=== PATIENT | male | born 1985 | race Caucasian/White ===

== ENCOUNTER → 2016-12-11 | Outpatient (CLI) | payer BC ==
[2016-12-11 17:20] LABS: DAYS OF ABSTINENCE 2; METHOD OF COLLECTION MASTERBATION; SEMEN COLOR GRAY OR GRAY-WHITE (GRY/GRYWHTE); SEMEN TIME OF COLLECTION 1430; SEMEN VOLUME 1.3 ML (>1.5); TYPE OF SPECIMEN CONTAINER STERILE CUP
[2016-12-11 17:21] LABS: SPERM VIABILITY STAIN NOT PERFORMED % (>58%)
== END | disposition home or self-care (01) ==
LOC: C.LAB 14:57
PROVIDERS: ATTEND Urology
DX: N46.9 Male infertility, unspecified (principal)

== ENCOUNTER → 2016-12-18 | Outpatient (CLI) | payer BC ==
[2016-12-21 14:16] LABS: METHOD OF COLLECTION MASTURBATION; SEMEN TIME OF COLLECTION 1500; TYPE OF SPECIMEN CONTAINER STERILE CUP
[2016-12-21 14:17] LABS: DAYS OF ABSTINENCE 5; SEMEN COLOR GRAY OR GRAY-WHITE (GRY/GRYWHTE); SPERM VIABILITY STAIN NOT INDICATED % (>58%)
== END | disposition home or self-care (01) ==
LOC: C.LAB 15:00
PROVIDERS: ATTEND Family Medicine
DX: N46.9 Male infertility, unspecified (principal)

== ENCOUNTER 2020-01-17 06:03 | Observation (INO) ==
[2020-01-17] MEDS ORDERED: SODIUM CHLORIDE 0.9% 1000ML 1,000 ML IV ONE (06:10)
--- NOTE | 2020-01-17 06:13 | Emergency Department Note ---
Impression & Plan Overdose of trazodone, Anticholinergic syndrome ED Provider Note Name: ROLANDO GILL Age: 34 Sex: M Arrives Via: Ambulance Informant: EMS ED Provider: Johnson Morel MD Chief Complaint: Overdose Impression: Overdose of Trazodone Anticholinergic Syndrome Medical Decision Makin yr old male without known medical history arrives obtunded though anticholin ergic following large Trazadone overdose roughly 1 to 2 hours prior to arrival. Apparently overdosed after getting in to argument with girlfriend. Reportedly this was a suicide attempt but patient unable to give history due to AMS. Tachy, dry and tremulous as well as having erection on exam. Consistent with anticholinergic syndrome. EKG without QTC nor QRS prolongation, CXR clear and initial vitals other than mild tachy normal with good sats on RA. Reviewed with Poison Control who agree with plan. IV fluids and IV ativan given increasing anticholinergic findings and wish to block worsening or seizure. No seizing here fortunately. No known other medications and no evidence of trauma. Vastly improving with fluids and initial Ativan IV. Repeat EKG stable. Prior Medical Record and Triage/Nursing Notes reviewed by Me Additional history obtained from EMS Differentials:Overdose, toxicologic, infection, hypoglycemia, electrolyte abnormalities, cardiac sources, intracerebral event, neurologic, trauma, as well as other pathologies. Vital Signs: reviewed and remarkable for tachy Interventions: Saline lock, NSS Bolus, Ativan 2mg IV Labs:Reviewed and remarkable for no acute findings Imaging:X ray results are stated below per my interpretation: Chest: 1 view: No infiltrate, no effusion, normal cardiac border. EKG #1:Per My Interpretation: Indication Overdose: NSR 81 bpm, qtc 469. No Ectopy. No Ischemia. No previous for comparison EKG #2. Per My Interpretation: Indication Overdose: NSR 91 bpm, qtc 460. No Ectopy. No Ischemia. Compared to EKG ealier, no significant changes. Cardiac/Tele Monitoring: Cardiac Monitoring: An Order was placed for continuous cardiac monitoring. The monitor shows a rate of 110 with a sinus tach rhythm. Consults:Dr Juwan ORELLANA Hospitalist Plan: Disposition:Hospitalization. Condition: Fair Blood pressure:Normal.No Referral necessary Prescriptions:none PDMP: n/a History of Present Illness:34 / M arrives for evaluation of overdose. Patient with unknown history. Arrives via EMS following medication overdose. Some time between 4am and 5am patient took roughly 10 tablets of 300mg Trazadone. Apparently he did this in response to girlfriend kicking him out of the house. These were the girlfriend's medications. No other known medications nor alcohol involved. Patient apparently rapidly became somnolent, may have had a seizure and EMS called. On their arrival patient somonlent with poor respiratory effort. Placed on NRB and vitals normal en route. Given Narcan 2mg IV without waking up. Given 500ml IV fluids prior to arrival. Further information unable to be obtained. ROS: Unable to obtain due to AMS Past Medical History:Unknown Past Surgical History:unknown Family History:Unknown Social History:Unknown Home Medications:Unknown Allergies:Unknown Vitals:Blood Pressure: 143/88, Pulse 101, RR 24, T 37.3C, O2 100% on RA Physical Exam: GENERAL: Patient is obtunded and though periodically spontaneously making tremulous movements appearing. EYES: No scleral icterus, unremarkable pupils. Wandering eyes with mildly discongugate gaze ENT: Mucous membranes dry, no nasal congestion. NECK: No masses appreciated, nomeningismus, trachea is midline. RESPIRATORY: No dyspnea. Clear to auscultation and equal bilaterally. No wheeze, no rhonchi. CARDIOVASCULAR: Mild Tachy.No murmurs, rubs, gallops appreciated. GASTROINTESTINAL: Abdomen soft, non-tender, no peritonitis.Bowel sounds pos itive.No masses appreciated. BACK: No midline tenderness, no CVA tenderness EXTREMITIES: Normal motion all extremities, no cyanosis, no edema. : erection NEUROLOGIC: Withdrawals slightly to painful stimuli, periodically mumbling, Obtunded/unresponsive, but periodically making spontaneous tremulous movements or trying to sit up SKIN: No rash, no jaundice, no diaphoresis. GCS: 7 ED Course: Times/Reassessments: Many bedside evaluations, seems improved with Ativan & fluids Critical Care: I have personally spent 45 minutes of critical care time in the direct management of this patient. Acute Trazadone overdose with anticholinergic syndrome. This was a life/limb threatening event. This 45 minutes is in excess of all separately billable procedures. Johnson Morel MD Past Med/Surg History Social History Smoking Status: Unknown if ever smoked Preferred Language: Dominican Feels Safe at Home: Yes Allergies Allergies Allergy/AdvReac Type Severity Reaction Status Date / Time amoxicillin Allergy Unknown unknown Verified 10/04/14 20:06 Home Meds Home Medications Medication Instructions Recorded Confirmed Unobtainable 01/17/20 01/17/20 Results & Data (ED) Vital Signs Vital Signs - 24 hr 01/17/20 06:14 01/17/20 06:44 01/17/20 07:00 Temperature 37.3 C Temperature Source Oral Pulse Rate 101 H 88 Pulse Rate [Apical] 81 Pulse Rate from SpO2 Sensor 86 Respiratory Rate 24 23 18 Respiratory Depth Normal Blood Pressure 143/88 H 112/47 L Blood Pressure [Right Arm] 121/49 L Blood Pressure Mean 106 72 Blood Pressure Mean [Right Arm] 73 Pulse Oximetry 100 97 98 Oxygen Delivery Method Room Air Room Air Room Air Sepsis Recent Fever Within 48 Hours No Sepsis New/Unexplained Change in Mental Status Yes Sepsis Action Taken by Nursing No Action Required 01/17/20 07:06 Temperature Temperature Source Pulse Rate Pulse Rate [Apical] Pulse Rate from SpO2 Sensor Respiratory Rate Respiratory Depth Blood Pressure Blood Pressure [Right Arm] Blood Pressure Mean Blood Pressure Mean [Right Arm] Pulse Oximetry 95 Oxygen Delivery Method Room Air Sepsis Recent Fever Within 48 Hours Sepsis New/Unexplained Change in Mental Status Sepsis Action Taken by Nursing Laboratory Data Result diagrams: 01/17/20 05:40 01/17/20 05:40 Lab Results 01/17/20 01/17/20 01/17/20 Range/Units 05:40 05:40 05:40 WBC 8.79 (4.8-10.8) K/uL RBC 5.02 (4.7-6.1) M/uL Hgb 14.5 (14.0-18.0) g/dL Hct 43.9 (42-52) % MCV 87.5 (80-100) fL MCH 28.9 (25-34) pg MCHC 33.0 (32-36) g/dL RDW Std Deviation 44.6 (36.4-46.3) fL RDW Coeff of Des 13.9 (11.5-14.5) % Plt Count 248 (130-400) K/uL MPV 9.6 (7.4-10.4) fL Immature Gran % (Auto) 0.1 % Neut % (Auto) 63.3 % Lymph % (Auto) 28.2 % [place] % (Auto) 6.8 % Eos % (Auto) 1.4 % Baso % (Auto) 0.2 % Neut # (Auto) 5.56 (1.4-6.5) K/uL Lymph # (Auto) 2.48 (1.2-3.4) K/uL [place] # (Auto) 0.60 H (0.11-0.59) K/uL Eos # (Auto) 0.12 (0-0.5) K/uL Baso # (Auto) 0.02 (0-0.2) K/uL Immature Gran # (Auto) 0.01 (0.00-0.02) K/uL Sodium 142 (136-145) mmol/L Potassium 3.4 L (3.5-5.1) mmol/L Chloride 110 H (98-107) mmol/L Carbon Dioxide 25 (21-32) mmol/L Anion Gap 7.0 (3-11) BUN 15 (7-18) mg/dl Creatinine 1.05 (0.6-1.4) mg/dl Est Cr Clr Drug Dosing 116.2 ml/min Est GFR ( Amer) 108.3 Est GFR (Non-Af Amer) 93.5 BUN/Creatinine Ratio 14.3 (10-20) Glucose 116 H (70-99) mg/dl Calcium 8.6 (8.5-10.1) mg/dl Total Bilirubin 0.5 (0.2-1) mg/dl AST 12 L (15-37) U/L ALT 35 (12-78) U/L Alkaline Phosphatase 69 (45-117) U/L Total Protein 8.1 (6.4-8.2) gm/dl Albumin 4.0 (3.4-5.0) gm/dl Globulin 4.1 H (2.5-4.0) gm/dl Albumin/Globulin Ratio 1.0 (0.9-2) TSH 1.030 (0.300-4.500) uIu/ml Urine Color Urine Appearance (Clear) Urine pH (4.5-7.5) Ur Specific [place] (1.000-1.030) Urine Protein (Negative) Urine Glucose (UA) (Negative) Urine Ketones (Negative) Urine Blood (Negative) Urine Nitrite (Negative) Urine Bilirubin (Negative) Urine Urobilinogen (Negative) Ur Leukocyte Esterase (Negative) Urine RBC (0-4) /hpf Urine WBC (0-5) /hpf Ur Epithelial Cells (0-5) /lpf Urine Bacteria (Negative) Hyaline Casts (0-5) /lpf Urine Mucus (None Prsent) Salicylates 3.1 (2.8-20) mg/dl Urine Opiates Screen (Neg) Ur Methadone, Qual (Neg) Acetaminophen < 2 L (10-30) ug/ml Urine Barbiturates (Neg) Ur Phencyclidine (PCP) (Neg) U Amphetamin/Meth Scrn (Neg) MDMA (Ecstasy) Screen (Neg) U Benzodiazepines Scrn (Neg) Ur Cocaine Metabolite (Neg) U Marijuana (THC) Screen (Neg) 01/17/20 01/17/20 Range/Units 06:18 06:18 WBC (4.8-10.8) K/uL RBC (4.7-6.1) M/uL Hgb (14.0-18.0) g/dL Hct (42-52) % MCV (80-100) fL MCH (25-34) pg MCHC (32-36) g/dL RDW Std Deviation (36.4-46.3) fL RDW Coeff of Des (11.5-14.5) % Plt Count (130-400) K/uL MPV (7.4-10.4) fL Immature Gran % (Auto) % Neut % (Auto) % Lymph % (Auto) % [place] % (Auto) % Eos % (Auto) % Baso % (Auto) % Neut # (Auto) (1.4-6.5) K/uL Lymph # (Auto) (1.2-3.4) K/uL [place] # (Auto) (0.11-0.59) K/uL Eos # (Auto) (0-0.5) K/uL Baso # (Auto) (0-0.2) K/uL Immature Gran # (Auto) (0.00-0.02) K/uL Sodium (136-145) mmol/L Potassium (3.5-5.1) mmol/L Chloride (98-107) mmol/L Carbon Dioxide (21-32) mmol/L Anion Gap (3-11) BUN (7-18) mg/dl Creatinine (0.6-1.4) mg/dl Est Cr Clr Drug Dosing ml/min Est GFR ( Amer) Est GFR (Non-Af Amer) BUN/Creatinine Ratio (10-20) Glucose (70-99) mg/dl Calcium (8.5-10.1) mg/dl Total Bilirubin (0.2-1) mg/dl AST (15-37) U/L ALT (12-78) U/L Alkaline Phosphatase (45-117) U/L Total Protein (6.4-8.2) gm/dl Albumin (3.4-5.0) gm/dl Globulin (2.5-4.0) gm/dl Albumin/Globulin Ratio (0.9-2) TSH (0.300-4.500) uIu/ml Urine Color Yellow Urine Appearance Cloudy A (Clear) Urine pH 5.0 (4.5-7.5) Ur Specific [place] >= 1.030 (1.000-1.030) Urine Protein Trace H (Negative) Urine Glucose (UA) Negative (Negative) Urine Ketones Negative (Negative) Urine Blood 2+ H (Negative) Urine Nitrite Negative (Negative) Urine Bilirubin Negative (Negative) Urine Urobilinogen Negative (Negative) Ur Leukocyte Esterase Negative (Negative) Urine RBC 10-30 H (0-4) /hpf Urine WBC >30 H (0-5) /hpf Ur Epithelial Cells 5-10 H (0-5) /lpf Urine Bacteria 1+ H (Negative) Hyaline Casts 10-30 H (0-5) /lpf Urine Mucus Present A (None Prsent) Salicylates (2.8-20) mg/dl Urine Opiates Screen Neg (Neg) Ur Methadone, Qual Neg (Neg) Acetaminophen (10-30) ug/ml Urine Barbiturates Neg (Neg) Ur Phencyclidine (PCP) Neg (Neg) U Amphetamin/Meth Scrn Pos H (Neg) MDMA (Ecstasy) Screen Pos H (Neg) U Benzodiazepines Scrn Neg (Neg) Ur Cocaine Metabolite Neg (Neg) U Marijuana (THC) Screen Pos H (Neg) Administered Medications Sodium Chloride (Nss 1000ml) 1,000 mls @ 125 mls/hr IV .Q8H BELTRAN Stop: 02/16/20 06:59 Last Admin: 01/17/20 06:55 Dose: 125 mls/hr Documented by: [id number] Discontinued Medications Sodium Chloride (Nss 1000ml) 1,000 mls @ 999 mls/hr IV .Q1H1M ONE Stop: 01/17/20 07:10 Last Admin: 01/17/20 06:13 Dose: 999 mls/hr Documented by: [id number] Lorazepam (Ativan) 2 mg in 4 mls @ 4 mls/min IV NOW STA Stop: 01/17/20 06:24 Last Admin: 01/17/20 06:26 Dose: 4 mls/min Documented by: [id number] Discharge Plan Visit Data Chief Complaint: Unresponsive Stated Complaint: UNRESPONSIVE ED Provider: Johnson Morel Discharge Problem: Overdose of trazodone, Anticholinergic syndrome Forms Stand Alone Forms: [place] Prescriptions Prescriptions: No Action Unobtainable RF: 0 Discharge Problem: Anticholinergic syndrome Qualifiers: Encounter type: initial encounter Injury intent: intentional self-harm Qualif ied Code(s): T44.3X2A - Poisoning by other parasympatholytics [anticholinergics and antimuscarinics] and spasmolytics, intentional self-harm, initial encounter
[2020-01-17] MEDS ORDERED: LORazepam 2 MG/4 ML VIAL IV STA (06:23)
--- NOTE | 2020-01-17 06:24 | XRay Report ---
XR chest 1V portable CLINICAL HISTORY: overdose dyspnea COMPARISON STUDY: No previous studies for comparison. FINDINGS: The bones soft tissues and hemidiaphragms are normal. The cardiomediastinal silhouette is n ormal. The lungs are clear. The pulmonary vasculature is normal. IMPRESSION: Negative chest. ACT 112: Negative or not required by law. The above report was generated using voice recognition software. It may contain grammatical, syntax or spelling errors. Electronically signed by: Armando Alberts M.D. 01/17/2020 6:22 AM
[2020-01-17 06:27] LABS: Basophils # (auto) 0.02 K/uL (0-0.2); Basophils % (auto) 0.2 %; Eosinophils # (auto) 0.12 K/uL (0-0.5); Eosinophils % (auto) 1.4 %; Hematocrit (blood only) 43.9 % (42-52); Hemoglobin 14.5 g/dL (14.0-18.0); Immature Granulocytes # (auto) 0.01 K/uL (0.00-0.02); Immature Granulocytes % (auto) 0.1 %; Lymphocytes # (auto) 2.48 K/uL (1.2-3.4); Lymphocytes % (auto) 28.2 %; Mean Corpuscular Hemoglobin 28.9 pg (25-34); Mean Corpuscular Volume 87.5 fL (80-100); Mean Platelet Volume 9.6 fL (7.4-10.4); Monocytes % (auto) 6.8 %; Neutrophils # (auto) 5.56 K/uL (1.4-6.5); Neutrophils % (auto) 63.3 %; Platelet Count 248 K/uL (130-400); RDW Coefficient of Variation 13.9 % (11.5-14.5); RDW Standard Deviation 44.6 fL (36.4-46.3); Red Blood Count 5.02 M/uL (4.7-6.1); White Blood Count 8.79 K/uL (4.8-10.8)
[2020-01-17 06:40] LABS: Appearance Urine Cloudy (Clear); Bilirubin Urine Negative (Negative); Blood Urine 2+ (Negative); Glucose Urine UA Negative (Negative); Ketones Urine Negative (Negative); Leukocyte Esterase Urine Negative (Negative); Nitrite Urine Negative (Negative); Protein Urine Trace (Negative); Specific Gravity Urine >= 1.030 (1.000-1.030); Urobilinogen Urine Negative (Negative)
[2020-01-17 06:41] LABS: Color Urine Yellow
[2020-01-17 06:46] LABS: Mucus Urine Present (None Prsent)
[2020-01-17 06:47] LABS: BUN Creatinine Ratio 14.3 (10-20); Calcium 8.6 mg/dl (8.5-10.1); Creatinine Clr Calc Pharmacy 116.2 ml/min; Est GFR (African American) 108.3; Est GFR (Non-African American) 93.5; Potassium 3.4 mmol/L (3.5-5.1)
[2020-01-17 06:49] LABS: Bacteria Urine 1+ (Negative); WBC Urine >30 /hpf (0-5)
[2020-01-17 06:54] LABS: Acetaminophen < 2 ug/ml (10-30); Salicylate 3.1 mg/dl (2.8-20)
[2020-01-17] MEDS: SODIUM CHLORIDE 0.9% 1000ML 1,000 ML IV SCH ×5 (06:55→16:32)
[2020-01-17 06:57] LABS: Bilirubin,Total 0.5 mg/dl (0.2-1); Globulin 4.1 gm/dl (2.5-4.0); Thyroid Stimulating Hormone 1.03 uIu/ml (0.300-4.500); Total Protein 8.1 gm/dl (6.4-8.2)
[2020-01-17 07:07] LABS: Amphetamines+Metham, Urine Pos (Neg); Barbiturates, Urine Neg (Neg); Benzodiazepine, Urine Neg (Neg); Cocaine, Urine Neg (Neg); MDMA (Ecstacy), Urine Pos (Neg); Methadone, Urine Neg (Neg); Opiate, Urine Neg (Neg); Phencyclidine, Urine Neg (Neg)
--- NOTE | 2020-01-17 07:24 | History & Physical Report ---
Date of Service January 17, 2020 Assessment & Plan (1) Overdose of trazodone: Patient apparently had a overdose of trazodone-organ with his girlfriend. There is some discussion whether this could have been a suicide gesture or not. Initial evaluation included some peripheral signs of anticholinergic effects on his body being tachycardic appearing with tremulous membranes and some tremors. Initial EKG did not show QT prolongation or QRS widening. Poison control was contacted by the emergency department and recommended IV fluids with occasional Ativan as needed for agitation patient has been sleeping since admission. Given the fact that his undisclosed from the patient himself or this was a suicide gesture or not at this point time since he is sleeping and calm and easily controlled I am not electing to apply a one-to-one evaluation as it would be resource issue having staff just stay in his room while he sleeping. If the patient awakens I have given instructions to nursing verbally that if he were needing to be detained in his room additional Ativan to be administered in a one-to-one could be enacted at that time. It is anticipated that when he awakens and is able to communicate with our psychiatric liaison's consult be placed for further discussion into his gesture. It is noted his tox screen is also positive for amphetamines MDMA marijuana with confirmatory testing pending DVT prevention is SCD (2) Anticholinergic syndrome: At this point time patient has some flushing to his face there is no tremor inspecting his airway cardiovascularly he is stable and EKG review shows continued appropriate QT and QRS intervals History of Present Illness Primary Care Provider: [facility] Since pt is obtunded but protecting airway and hemodynamically stable this history if from the Er record, the pt was not able to confirm or refute this being a suicide attempt or just an irrational act. 34 yr old male without known medical history arrives obtunded following large Trazadone overdose roughly 1 to 2 hours prior to arrival. Apparently overdosed after getting in to argument with girlfriend. Reportedly this was a suicide attempt but patient unable to give history due to AMS. Tachycardic, dry and tremulous as well as having erection on Er attending exam. Consistent with anticholinergic syndrome. EKG without QTC nor QRS prolongation, CXR clear and initial vitals other than mild tachy normal with good oxygen saturations on RA. ER attending reviewed with Poison Control who agree with plan for IV fluids and IV ativan given increasing anticholinergic findings and wish to block worsening or seizure. No seizing here fortunately. No known other medications and no evidence of trauma. Repeat EKG stable. Additional history obtained from EMS and ER notation Allergies Allergy/AdvReac Type Severity Reaction Status Date / Time amoxicillin Allergy Unknown unknown Verified 10/04/14 20:06 Home Medications Home Medications Medication Instructions Recorded Confirmed Type Unobtainable 01/17/20 01/17/20 History Past Med/Surg History Social History Smoking Status: Unknown if ever smoked Preferred Language: Latvian Communication Ability: Impaired Communication Ability Comment: Unknown due to patient's orientation at this time Feels Safe at Home: Yes Review of Systems Review of Systems: Unobtainable due to cognitive status Physical Exam Physical Exam: The patient appeared well nourished and normally developed. Vital signs as documented. Head exam is normocephalic atraumatic no scleral icterus Neck is without JVD, thyromegaly, or carotid bruits. Lungs are clear to auscultation, no focal loss of breath sounds Cardiac exam, Rhythm is regular.. No murmurs, rubs or gallops. Abdominal exam reveals normal bowel sounds, soft non tender, no masses Extremities are nonedematous and both pedal pulses are normal. Neurologic exam is alert and oriented, no focal loss of strength or sensation Skin is without bruises or rashes Psychologically is without concerns for anxiety or depression Results & Data Results & Data ([facility]) Vital Signs (Past 12 Hours) Vital Signs Temp Pulse Pulse Resp BP BP Pulse Ox 01/17/20 07:06 95 01/17/20 07:00 88 18 112/47 L 98 01/17/20 06:44 81 23 121/49 L 97 01/17/20 06:14 99.1 F 101 H 24 143/88 H 100 PG Care Time/CCT Total # of Minutes Spent Total Time Spent with Patient: Total time spent is greater than 50% in coordination of care (as documented) at patient's floor/unit and/or counseling patient: Coding Level of Care Code 57720 Initial Inpt Care Lvl 3 Diagnoses Overdose of trazodone T43.211A Anticholinergic syndrome T44.3X2A Encounter type: initial encounter Injury intent: intentional self-harm (1) Anticholinergic syndrome Encounter type: initial encounter Injury intent: intentional self-harm Qualified Code(s): T44.3X2A - Poisoning by other parasympatholytics [anticholinergics and antimuscarinics] and spasmolytics, intentional self-harm, initial encounter
[2020-01-17] MEDS ORDERED: ALUMINUM/MAGNESIUM SUSP 30 ML UDC PO PRN (09:15)
[2020-01-17] MEDS ORDERED: LORazepam 0.5 MG TAB PO PRN (09:15)
[2020-01-17] MEDS ORDERED: ACETAMINOPHEN 325 MG TAB PO PRN (09:15)
[2020-01-17] MEDS ORDERED: LORazepam 0.5 MG/1 ML VIAL IV PRN (09:15)
[2020-01-17] MEDS ORDERED: LORazepam 1 MG/2 ML VIAL IV PRN (15:16)
[2020-01-17] MEDS ORDERED: PNEUMOCOCCAL Polysaccharide Vaccine 25mcg/0.5mL vial/Syr IM ONE (16:00)
[2020-01-18] MEDS: SODIUM CHLORIDE 0.9% 1000ML 1,000 ML IV SCH ×2 (00:56→09:01)
[2020-01-18 07:18] LABS: Hematocrit (blood only) 38.2 % (42-52); Hemoglobin 12.4 g/dL (14.0-18.0); Mean Corpuscular Hemoglobin 28.8 pg (25-34); Mean Corpuscular Hgb Conc 32.5 g/dL (32-36); Mean Corpuscular Volume 88.8 fL (80-100); Mean Platelet Volume 9.5 fL (7.4-10.4); Platelet Count 226 K/uL (130-400); RDW Coefficient of Variation 13.8 % (11.5-14.5); RDW Standard Deviation 44.8 fL (36.4-46.3); White Blood Count 10.52 K/uL (4.8-10.8)
[2020-01-18 07:50] LABS: BUN Creatinine Ratio 7.7 (10-20); Calcium 7.8 mg/dl (8.5-10.1); Creatinine Clr Calc Pharmacy 137.1 ml/min; Est GFR (African American) 131.1; Est GFR (Non-African American) 113.1; Potassium 3.7 mmol/L (3.5-5.1)
--- NOTE | 2020-01-18 08:25 | Electrocardiogram Report ---
Test Reason : Blood Pressure : / mmHG Vent. Rate : 076 BPM Atrial Rate : 076 BPM P-R Int : 136 ms QRS Dur : 084 ms QT Int : 398 ms P-R-T Axes : 045 054 055 degrees QTc Int : 447 ms Normal sinus rhythm Normal ECG When compared with ECG of 17-JAN-2020 07:17, No significant change Confirmed by Vitor Clinton ([id number]) on 01/18/2020 8:25:13 AM Referred By: REFERRED SELF Confirmed By:Vitor Clinton
--- NOTE | 2020-01-18 09:15 | Electrocardiogram Report ---
Test Reason : Blood Pressure : / mmHG Vent. Rate : 081 BPM Atrial Rate : 081 BPM P-R Int : 132 ms QRS Dur : 078 ms QT Int : 404 ms P-R-T Axes : 061 063 051 degrees QTc Int : 469 ms Poor data quality, interpretation may be adversely affected Normal sinus rhythm Normal ECG No previous ECGs available Confirmed by Kenroy Edmond ([id number]) on 01/18/2020 9:14:29 AM Referred By: Confirmed By:Kenroy Edmond
--- NOTE | 2020-01-18 09:17 | Electrocardiogram Report ---
Test Reason : Blood Pressure : / mmHG Vent. Rate : 091 BPM Atrial Rate : 091 BPM P-R Int : 138 ms QRS Dur : 080 ms QT Int : 374 ms P-R-T Axes : 056 071 058 degrees QTc Int : 460 ms Normal sinus rhythm with sinus arrhythmia Normal ECG When compared with ECG of 17-JAN-2020 06:14, (unconfirmed) No significant change was found Confirmed by Kenroy Edmond ([id number]) on 01/18/2020 9:16:53 AM Referred By: Confirmed By:Kenroy Edmond
--- NOTE | 2020-01-18 17:44 | Discharge Summary ---
Date of Service January 18, 2020 Admission HPI Per Admitting Provider Since pt is obtunded but protecting airway and hemodynamically stable this history if from the Er record, the pt was not able to confirm or refute this being a suicide attempt or just an irrational act. 34 yr old male without known medical history arrives obtunded following large Trazadone overdose roughly 1 to 2 hours prior to arrival. Apparently overdosed after getting in to argument with girlfriend. Reportedly this was a suicide attempt but patient unable to give history due to AMS. Tachycardic, dry and tremulous as well as having erection on Er attending exam. Consistent with anticholinergic syndrome. EKG without QTC nor QRS prolongation, CXR clear and initial vitals other than mild tachy normal with good oxygen saturations on RA. ER attending reviewed with Poison Control who agree with plan for IV fluids and IV ativan given increasing anticholinergic findings and wish to block worsening or seizure. No seizing here fortunately. No known other medications and no evidence of trauma. Repeat EKG stable. Additional history obtained from EMS and ER notation Principal Diagnosis Toxic encephalopathy Discharge Exam The patient appeared well Vital signs as documented. Lungs are clear to auscultation and appear unlabored Cardiac exam, Rhythm is regular.. No murmurs, rubs or gallops. Abdominal exam reveals normal bowel sounds, soft non tender, no masses Extremities are nonedematous and both pedal pulses are normal. Neurologic exam is alert and oriented, no focal loss of strength or sensation Skin is without bruises or rashes Psychologically is without concerns for anxiety or depression Discharge Data Allergies Allergy/AdvReac Type Severity Reaction Status Date / Time amoxicillin Allergy Unknown unknown Verified 10/04/14 20:06 Consultations 01/17/20 07:00 ED Decision to Admit Stat 01/17/20 09:15 Consult Case Management - Discharge Planning Routine Hospital Course (1) Overdose of trazodone: Patient apparently had a overdose of trazodone-organ with his girlfriend. There is some discussion whether this could have been a suicide gesture or not. Initial evaluation included some peripheral signs of anticholinergic effects on his body being tachycardic appearing with tremulous membranes and some tremors. Initial EKG did not show QT prolongation or QRS widening. Poison control was contacted by the emergency department and recommended IV fluids with occasional Ativan as needed for agitation patient has been sleeping since admission. After the patient awoken he was able to describe the fact that he was severely stressed out from a fight with his girlfriend and just medications because he wanted to sleep and reduce his nerves he had no intention of harming himself he says he typically does not do things like this. I asked him about having psychiatric counseling he said he did does not think he needs it this is a one- time situational event his mother was called by case management did come to get him he is discharged home to her care. Prior to him leaving he was able to walk about the room and eat some food It is noted his tox screen is also positive for amphetamines MDMA marijuana with confirmatory testing pending he denies using these other substances (2) Anticholinergic syndrome: Resolved Total Time Total Time Spent Total Time Spent (In Minutes): It required greater than 30 minutes to prepare this patient for discharge Discharge Plan Discharge Items Patient Disposition: Home - Self-Care Reason For Visit: ANTICHOLINERGIC OVERDOSE Discharge Diagnosis: non intentional overdose Activity: Resume your previous activity Non-emergency contact: Primary Care Provider Call non-emergency contact if: you have any medication questions Follow-up/Referrals: PCP,NO [Primary Care Provider] - Diet: Regular Addtl Attending Provider Instructions: please do not take medications unless prescribed by your primary care doctor if you need a primary care doctor please alert us and we will get one for you please seek help for stress if your emotions cause you to place yourself in dangerous situations such as the one that resulted in your admission Pending Studies at Discharge: No Stand-Alone Forms: [employer] [place], Smoking Cessation Medications and DC Order Prescriptions: No Action Unobtainable RF: 0 Discharge Orders: Discharge Order (Routine); Ordered 01/18/20 Ordered By: Robert Lam/Other Patient Handouts: Causes and Effects of Stress, [place] to Managing Stress, Responding Better to Stress, Identifying Causes of Stress, Stress Relief: Activities, Stress Relief: Relaxation, Stress Relief: A Positive Lifestyle Admission Data Admit Date/Time: 01/17/20 07:32 Attending Provider: Robert Echeverria Admit Provider: Robert Echeverria Primary Care Provider: PCP,NO Other Providers: Robert Echeverria Other Interventions: Discharge Summary Assessment (RN) Last Done: 01/18/20 14:05 DC Date/Time DO NOT enter until pt leaves facility: 01/18/20 14:34 Coding Level of Care Code D/C Day Management >30 mins Diagnoses Overdose of trazodone T43.211A Anticholinergic syndrome T44.3X2A Encounter type: initial encounter Injury intent: intentional self-harm
[2020-01-23 09:00] LABS: Amphetamine Urine, Confirm >15000 ng/mL (<250); MDA negative; MDEA negative; MDMA (Ecstasy) Urine, Confirm negative; Marijuana Quant, GCMS Urine 35 ng/mL (<5); Methamphetamine, Ur Confirm >15000 ng/mL (<250)
== END 2020-01-18 14:34 | disposition home or self-care (01) | DRG 918 ==
LOC: ED 06:03 → INTOOBSV 07:32 → 1E 07:32 → 2S 17:22